=== PATIENT | male | born 2000 | race Caucasian/White ===

== ENCOUNTER 2023-07-09 04:46 | Emergency (ER) | payer SELFPAY ==
[~2023-07-09] VITALS: Ht 175.3 cm; Wt 90.7 kg
[2023-07-09 04:49] VITALS: BP 168/68; PULSE 133; RESP 18; TEMP 97.4; O2SAT 100
[2023-07-09 05:05] VITALS: BP 168/68; PULSE 133; RESP 18; TEMP 97.4; O2SAT 100
== END 2023-07-09 05:05 ==
LOC: MED 04:46
DX: S00.83XA Contusion of other part of head, initial encounter (principal); Z02.89 Encounter for other administrative examinations; R03.0 Elevated blood-pressure reading, without diagnosis of hypertension; V89.2XXA Person injured in unspecified motor-vehicle accident, traffic, initial encounter; Y93.89 Activity, other specified; Y92.410 Unspecified street and highway as the place of occurrence of the external cause; Y99.8 Other external cause status
CPT/HCPCS: 99283